=== PATIENT | male | born 1980 | race Caucasian/White ===

== ENCOUNTER → 2017-05-30 | Outpatient (CLI) | payer OTHER ==
--- NOTE | 2017-05-30 10:42 | ST Modified Barium Swallow ---
Recommendation - Recommendations Recommendations: Pharyngeal swallowing mechanism within functional limits. Recommend follow up with GI doctor due to esophageal deficits. 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 Patient acted as his own historian this day. States that he has had difficulty swallowing for "a while", characterized by globus sensation and frequent throat clearing during and after meals. States particular difficulty with meats. He reports being diagnosed with [place] Syndrome recently, and that he has a history of TBI and cranial hematoma, with subsequent cranial plate. Reports constant discomfort in throat, which increases during swallowing. No prior speech therapy for swallowing difficulties. Medications: Patient reports the following medications, not a complete list: zoloft, abilify, prilosec, gabapentin, elavil, prazosin Allergies: NKA - Functional Status Prior Functional Status: INDEPENDENT: feeding - independent Current Functional Limitations: feeding - modifying diet - Subjective Patient/caregiver goal(s): better swallow Cognitive-Linguistic Function: WNL Speech Intelligibility: WNL Current Nutritional Means: PO Current PO diet: Regular Current symptoms: Coughing, c/o Globus sensation Pain: 3/5 - throat pain/discomfort (constant) - Objective Assessment: Upright, Left Lateral - Food Trials Used Food trials used: Thin liquids, Pureed, Regular The patient: Was Able to Self Feed - Oral-Motor Skills Dentition: Full Laryngeal Function: Volitional Cough - WNL, Volitional Swallow - WNL - Assessment Oral prep: Normal Labial closure: Adequate Mastication: Adequate Lingual Movement: Normal Oral stage: Normal for this Procedure - Pharyngeal Stage Initiation of Pharyngeal Stage Reflex: Normal Decreased laryngeal elevation: No Reduced Velopharyngeal Closure: no Reduced pressure generation: No reduced tongue-based retraction: No Pre-swallow pooling in valleculae: None Pre-Swallow pooling in pyriforms: None Reduced epiglottic excursion: No Reduced pharyngeal peristalsis/contraction: No Post-swallow residulas vallecular: None Post-Swallow residuals in pyriforms: Mild - for pudding and reynold cracker trials - Esophageal Stage Upper Esophageal Transit: Impaired Esophageal Stage: Significant residue remained in upper esophagus on reynold cracker trial, did not clear with dry swallow, partially cleared with liquid wash. Esophageal stasis also resulted in pyriform sinus residue with solids. - Fall Risk Assessment Medications/Conditions that increase fall risks include: Antidepressants, sedatives, anti-arrhythmic, diuretic, benzodiazipenes, neuroleptics. BP regulation problems, cardiac problems, balance or gait deficits, neurological problems. Is patient considered at risk for falls: no Fall Risk Actions Taken: No action needed - Behavioral Observations During evaluation process patient: was cooperative, able to answer questions, provided medical history Mental Status: Alert & Oriented X3 - Treatment / Educational Needs: Treatment/Education Needs: Treatment consisted of patient education on the role of the Speech Pathologist. Patient's plan of care and golas were communicated as well as scheduling and attendance policies. Recommendations for initial home program were shared. Patient demonstrated understanding and verbalized agreement. - Impression/Summary Laryngeal Penetration: No Tracheal Aspiration: no Compesatory strategies: Liquid wash. Patient presents with: Esophageal stage dysph. Risk of Aspiration: Mild Risk of nutritional compromise: WNL Risk due to: Aspiration risk secondary to residue in pyriform sinus, which is directly related to reduced esophageal clearing of material. Evaluation and Findings: Oral and pharyngeal phase swallow skills within normal limits. However, significantly reduced esophageal clearing noted, resulting in some pyriform sinus residue, which could potentially spill into laryngeal vestibule. Recommended liquid wash after solids for patient, and to avoid certain textures, such as nuts and seeds. Would benefit from follow up with GI for esophageal concerns, and ENT to follow for [place] Syndrome. - Recommendations Solid diet recommendations: Regular - avoidng specific foods Liquid Diet Modification: Thin Dysphagia therapy with BE[employer] C[employer]URIST APPRENTICE: no - nature of swallowing deficits does not make the patient a good candidate for speech/dysphagia therapy. Recommended techniques: Alternate Bites/Sips Supervision: Independent Information, Precautions and Recommendations: Patient (Written), Patient (Verbal ) - Plan of Care Patient to follow-up with referring physician: Yes Total timed minutes: 25 Strategies to optimize patient understanding include:: ongoing assessment of educational needs, implementation of educational strategies, and re-education. - - -: Thank you for the opportunity to work with this patient and his/her family. Should you have any questions about this patient's plan or progress, I can be reached at [phone]. Charge G Code? - - -: No
--- NOTE | 2017-05-30 16:31 | RADIOLOGY REPORT (SQ) ---
EXAM DESCRIPTION: BAUDILIO SWALLOW COMPLETED DATE/TIME: 05/30/2017 8:36 am REASON FOR STUDY: DYSPHAGIA (R13.10) R13.10 DYSPHAGIA, UNSPECIFIED FOOD IN PHARYNX CAUSING OTHER IN JURY, SEQUELA T17.228S COMPARISON: None. TECHNIQUE: Videofluoroscopic swallowing examination was performed in conjunction with speech patholo gy. Videofluoroscopic imaging was obtained and reviewed and these are the findings: RADIATION DOSE: Total fluoroscopy time: 1 minutes 6 seconds 1 fluoroscopy image saved to PACS. LIMITATIONS: None FINDINGS: The patient was brought into the fluoro room and placed upright on a modified barium swall ow chair. The patient was then given multiple consistencies mixed with barium to swallow under live fluoroscopic video guidance. According to the Speech Pathologist there was no laryngeal penetration or tracheal aspiration. Normal oral and pharyngeal transit time was observed. No significant post s wallow residual was seen. Please see speech pathology report for further details and recommendations . IMPRESSION: NO EVIDENCE OF LARYNGEAL PENETRATION OR TRACHEAL ASPIRATION.PLEASE SEE SPEECH PATHOLOGIS T REPORT FOR OTHER FINDINGS AND RECOMMENDATIONS. COMMENT: Quality ID [id number]: Final reports for procedures using fluoroscopy that document radiation exp osure indices, or exposure time and number of fluorographic images (if radiation exposure indices are not available) TECHNICAL DOCUMENTATION: JOB ID: [id number] [employer]- All Rights Reserved
== END ==
LOC: RAD 07:17
PROVIDERS: ATTEND Internal Medicine
DX: R13.10 Dysphagia, unspecified (principal); R56.9 Unspecified convulsions
CPT/HCPCS: 74230